=== PATIENT | male | born 1960 | race Hispanic/Latino ===

== ENCOUNTER 2020-11-09 03:03 | Inpatient (IN) | payer OTHER ==
[2020-11-08] MEDS: LOSARTAN POTASSIUM 100 MG TAB PO SCH (19:49)
[2020-11-09] VITALS (14 sets, daily range): BP systolic 131–174; BP diastolic 73–96
[~2020-11-09] VITALS: Ht 172.7 cm; Wt 108.9 kg
[2020-11-09] MEDS ORDERED: MORPHINE SULFATE INJ 4 MG/ML INJ 1ML IV STA (03:23)
[2020-11-09] MEDS ORDERED: ONDANSETRON HCL INJ 2MG/ML 2ML 2 MG/ML VIAL IV STA (03:23)
[2020-11-09] MEDS ORDERED: PANTOPRAZOLE 40 MG 10ML VIAL IV STA (03:23)
[2020-11-09 04:17] LABS: BASOPHILS % 0.3 % (0.0-1.0); EOSINOPHILS # (AUTO) 0.1 (0.0-0.4); EOSINOPHILS % 0.8 % (0.0-6.0); HEMATOCRIT 42.4 % (38.2-49.6); HEMOGLOBIN 13.9 g/dL (14.0-18.0); LYMPHOCYTES # (AUTO) 2.3 (1.0-3.2); LYMPHOCYTES % 29.6 % (18.0-39.1); MEAN CORPUSCULAR HEMOGLOBIN 27.6 pg (28-32); MEAN CORPUSCULAR HGB CONC 32.8 g/dL (31-35); MEAN CORPUSCULAR VOLUME 84.3 fL (81-99); MONOCYTES # (AUTO) 0.6 (0.2-0.8); MONOCYTES % 7.9 % (4.4-11.3); NEUTROPHILS # (AUTO) 4.7 (2.1-6.9); PLATELET COUNT 222 x10e3/uL (140-360); RED BLOOD COUNT 5.03 x10e6/uL (4.3-5.7); RED CELL DISTRIBUTION WIDTH 13.3 % (11.7-14.4)
[2020-11-09 04:30] LABS: ALANINE AMINOTRANSFERASE 17 IU/L (0-55); ALBUMIN 4.1 g/dL (3.5-5.0); ALBUMIN/GLOBULIN RATIO 1.1 (0.8-2.0); ALKALINE PHOSPHATASE 73 IU/L (40-150); ANION GAP 15.2 mmol/L (8-16); BLOOD UREA NITROGEN 11 mg/dL (7-26); BUN/CREATININE RATIO 11 (6-25); CALCIUM 9.1 mg/dL (8.4-10.2); CARBON DIOXIDE 27 mmol/L (22-29); CHLORIDE 103 mmol/L (98-107); CREATINE KINASE 71 IU/L (30-200); EST GLOMERULAR FILTRATION RATE > 60 ML/MIN (60-); GLUCOSE 119 mg/dL (74-118); POTASSIUM 3.2 mmol/L (3.5-5.1); SODIUM 142 mmol/L (136-145)
[2020-11-09 04:31] LABS: AMYLASE 45 U/L (25-125); LIPASE 28 U/L (8-78)
[2020-11-09] MEDS ORDERED: SODIUM CHLORIDE 0.9% 50ML 50 ML ONE (05:12)
[2020-11-09] MEDS ORDERED: IOPAMIDOL 370 MG/ML 200 ML INFUS..BTL INJ ONE (05:12)
[2020-11-09] MEDS ORDERED: LABETALOL HCL 5 MG/ML 20ML VIAL IV STA (05:46)
[2020-11-09 06:20] LABS: CLARITY,URINE CLOUDY (CLEAR); COLOR,URINE AMBER (YELLOW); KETONES,URINE TRACE (NEGATIVE); LEUKOCYTE ESTERASE ,URINE NEGATIVE (NEGATIVE); NITRITE,URINE NEGATIVE (NEGATIVE); PROTEIN,URINE DIPSTICK 1+ (NEGATIVE)
[2020-11-09 06:21] LABS: BACTERIA,URINE MODERATE /HPF; EPITHELIAL CELLS,URINE MODERATE /LPF; MUCUS,URINE MANY (RARE); URINE UROBILINOGEN 2 mg/dL (0.2 - 1)
[2020-11-09] MEDS ORDERED: CEFTRIAXONE SOD 1 GM/50 ML BAG IV SCH (06:45)
[2020-11-09] MEDS: CEFTRIAXONE SOD 1 GM in SODIUM CHLORIDE 0.9% 50ML 50 ML IV SCH ×2 (06:58→16:44)
[2020-11-09] MEDS ORDERED: ENALAPRILAT IV INJ 1.25 MG/ML VIAL IV STA (07:06)
[2020-11-09] MEDS ORDERED: ONDANSETRON HCL INJ 2MG/ML 2ML 2 MG/ML VIAL IV PRN (07:15)
[2020-11-09] MEDS ORDERED: ENALAPRILAT IV INJ 1.25 MG/ML VIAL IV PRN (07:15)
[2020-11-09] MEDS: METOPROLOL SUCCINATE 25 MG TAB XL PO SCH ×2 (07:51→09:00)
[2020-11-09] MEDS: FAMOTIDINE 20 MG/2 ML VIAL IV SCH ×2 (11:02→19:49)
[2020-11-09] MEDS ORDERED: HYDROCHLOROTHIA25 MG PO (11:30)
[2020-11-09 12:59] LABS: CREATINE KINASE 47 IU/L (30-200)
[2020-11-09] MEDS: AMLODIPINE BESYLATE 5 MG TAB PO SCH (14:29)
[2020-11-09] MEDS: DOCUSATE SODIUM 100 MG CAP PO SCH (19:49)
[2020-11-09] MEDS: MORPHINE SULFATE INJ 2 MG/ML SYR IV PRN (19:54)
[2020-11-09] MEDS: LABETALOL HCL 5 MG/ML 20ML VIAL IV PRN (20:20)
[2020-11-10] VITALS (26 sets, daily range): BP systolic 125–163; BP diastolic 66–95
[2020-11-10] MEDS: MORPHINE SULFATE INJ 2 MG/ML SYR IV PRN ×2 (03:28→08:07)
[2020-11-10 05:44] LABS: BASOPHILS % 0.1 % (0.0-1.0); EOSINOPHILS % 0.1 % (0.0-6.0); HEMATOCRIT 39.6 % (38.2-49.6); HEMOGLOBIN 12.9 g/dL (14.0-18.0); LYMPHOCYTES # (AUTO) 1.1 (1.0-3.2); LYMPHOCYTES % 12.4 % (18.0-39.1); MEAN CORPUSCULAR HEMOGLOBIN 27.7 pg (28-32); MEAN CORPUSCULAR HGB CONC 32.6 g/dL (31-35); MEAN CORPUSCULAR VOLUME 85.2 fL (81-99); MONOCYTES # (AUTO) 0.9 (0.2-0.8); MONOCYTES % 10.3 % (4.4-11.3); NEUTROPHILS % 76.8 % (38.7-80.0); PLATELET COUNT 187 x10e3/uL (140-360); RED BLOOD COUNT 4.65 x10e6/uL (4.3-5.7); RED CELL DISTRIBUTION WIDTH 13.6 % (11.7-14.4)
[2020-11-10] MEDS ORDERED: CEFTRIAXONE SOD 1 GM VIAL ONE ×2 (06:00→20:25)
[2020-11-10] MEDS: LABETALOL HCL 5 MG/ML 20ML VIAL IV PRN ×3 (06:31→22:14)
[2020-11-10] MEDS: CEFTRIAXONE SOD 1 GM in SODIUM CHLORIDE 0.9% 50ML 50 ML IV SCH ×2 (06:32→20:30)
[2020-11-10 06:35] LABS: ALANINE AMINOTRANSFERASE 11 IU/L (0-55); ALBUMIN 3.6 g/dL (3.5-5.0); ALKALINE PHOSPHATASE 62 IU/L (40-150); ANION GAP 13.7 mmol/L (8-16); BLOOD UREA NITROGEN 13 mg/dL (7-26); BUN/CREATININE RATIO 16 (6-25); CALCIUM 8.3 mg/dL (8.4-10.2); CARBON DIOXIDE 26 mmol/L (22-29); CHLORIDE 102 mmol/L (98-107); CHOL/HDL RATIO 3.1 (3.9-4.7); CHOLESTEROL 129 MD/DL (0-199); CREATININE, SERUM 0.81 mg/dL (0.72-1.25); EST GLOMERULAR FILTRATION RATE > 60 ML/MIN (60-); GLUCOSE 116 mg/dL (74-118); HDL CHOLESTEROL 42 MG/DL (40-60); LDL CHOLESTEROL 73 MG/DL (60-130); POTASSIUM 3.7 mmol/L (3.5-5.1); SODIUM 138 mmol/L (136-145); TRIGLYCERIDES 71 MG/DL (0-149)
[2020-11-10 07:54] LABS: CREATINE KINASE MB 0.4 ng/mL (0-5.0)
[2020-11-10] MEDS: DOCUSATE SODIUM 100 MG CAP PO SCH ×2 (08:05→16:31)
[2020-11-10] MEDS: FAMOTIDINE 20 MG/2 ML VIAL IV SCH (08:05)
[2020-11-10] MEDS: ATORVASTATIN 20 MG TAB PO SCH (08:06)
[2020-11-10] MEDS: METOPROLOL SUCCINATE 25 MG TAB XL PO SCH (08:06)
[2020-11-10] MEDS: LOSARTAN POTASSIUM 100 MG TAB PO SCH (08:06)
[2020-11-10] MEDS: AMLODIPINE BESYLATE 5 MG TAB PO SCH (08:06)
[2020-11-10] MEDS ORDERED: DOCUSATE SODIUM 100 MG CAP PO SCH (09:00)
[2020-11-10] MEDS ORDERED: METOPROLOL SUCCINATE 25 MG TAB XL PO ONE (11:30)
[2020-11-10] MEDS ORDERED: METOPROLOL SUCCINATE 50 MG TAB XL PO SCH (12:00)
[2020-11-10] MEDS ORDERED: ACETAMINOPHEN/CODEINE 300MG - 30MG TAB PO PRN (14:00)
[2020-11-10] MEDS: PANTOPRAZOLE 40 MG 10ML VIAL IV SCH (16:31)
[2020-11-10] MEDS ORDERED: LOSARTAN POTASSIUM 100 MG TAB PO SCH (20:00)
[2020-11-10] MEDS ORDERED: SODIUM CHLORIDE 0.9% 100 ML ONE (20:27)
[2020-11-10] MEDS: NIFEDIPINE CR 30 MG TAB PO SCH (20:30)
[2020-11-11] VITALS (10 sets, daily range): BP systolic 109–152; BP diastolic 60–91
[2020-11-11] MEDS ORDERED: CEFTRIAXONE SOD 1 GM VIAL ONE (06:36)
[2020-11-11] MEDS ORDERED: SODIUM CHLORIDE 0.9% 100 ML ONE (06:37)
[2020-11-11] MEDS: CEFTRIAXONE SOD 1 GM in SODIUM CHLORIDE 0.9% 50ML 50 ML IV SCH (06:45)
[2020-11-11] MEDS: LOSARTAN POTASSIUM 100 MG TAB PO SCH (07:38)
[2020-11-11] MEDS: PANTOPRAZOLE 40 MG 10ML VIAL IV SCH ×2 (07:38→17:05)
[2020-11-11] MEDS: DOCUSATE SODIUM 100 MG CAP PO SCH ×2 (07:38→17:05)
[2020-11-11] MEDS: ATORVASTATIN 20 MG TAB PO SCH (07:38)
[2020-11-11] MEDS: NIFEDIPINE CR 30 MG TAB PO SCH (07:39)
[2020-11-11] MEDS ORDERED: METOPROLOL SUCCINATE 50 MG TAB XL PO SCH ×2 (09:00)
[2020-11-11] MEDS ORDERED: TOPROL XL50 MG PO (18:08)
[2020-11-11] MEDS ORDERED: COZAAR100 MG PO (18:08)
[2020-11-11] MEDS ORDERED: LIPITOR20 MG PO (18:08)
[2020-11-11] MEDS ORDERED: NIFEDIPINE ER30 M1 PO (18:08)
[2020-11-11] MEDS ORDERED: PANTOPRAZOLE SO40 MG PO (18:08)
== END 2020-11-11 18:44 | disposition home or self-care (01) | DRG 301 ==
LOC: ER 03:22 → ERHOLD 07:06 → IMCU 09:32
PROVIDERS: ADMIT Internal Medicine; ATTEND Internal Medicine
DX: I71.01 Dissection of thoracic aorta (principal); I10 Essential (primary) hypertension; E66.9 Obesity, unspecified; Z68.36 Body mass index [BMI] 36.0-36.9, adult; R10.9 Unspecified abdominal pain; Z20.822 Contact with and (suspected) exposure to COVID-19; E66.01 Morbid (severe) obesity due to excess calories; E78.5 Hyperlipidemia, unspecified
CPT/HCPCS: 36415; 71275; 74177; 80053; 80061; 81001; 82150; 82550; 82553; 83605; 83690; 84484; 85025; 86850; 86900; 87086; 93005; 93306; 99284; J0696; J2270; J2405; J7050; Q9967; U0002

== ENCOUNTER 2023-01-15 21:49 | Emergency (ER) | payer OTHER ==
[~2023-01-15] VITALS: Ht 172.7 cm; Wt 99.8 kg
[~2023-01-15 21:49] MED LIST: COZAAR100 MG PO; HYDROCHLOROTHIA25 MG PO; LIPITOR20 MG PO; NIFEDIPINE ER30 M1 PO; PANTOPRAZOLE SO40 MG PO; TOPROL XL50 MG PO
[2023-01-15 22:22] LABS: BASOPHILS % 0.2 % (0.0-1.0); EOSINOPHILS % 0.2 % (0.0-6.0); HEMATOCRIT 29.5 % (38.2-49.6); LYMPHOCYTES % 9.3 % (18.0-39.1); MEAN CORPUSCULAR HEMOGLOBIN 24.1 pg (28-32); MEAN CORPUSCULAR HGB CONC 30.5 g/dL (31-35); MEAN CORPUSCULAR VOLUME 78.9 fL (81-99); MONOCYTES # (AUTO) 0.7 (0.2-0.8); MONOCYTES % 5.9 % (4.4-11.3); NEUTROPHILS # (AUTO) 9.2 (2.1-6.9); NEUTROPHILS % 83.9 % (38.7-80.0); PLATELET COUNT 311 x10e3/uL (140-360); RED BLOOD COUNT 3.74 x10e6/uL (4.3-5.7)
[2023-01-15 22:40] LABS: ALBUMIN 3.3 g/dL (3.5-5.0); ALBUMIN/GLOBULIN RATIO 0.8 (0.8-2.0); ANION GAP 12.3 mmol/L (8-16); CALCIUM 8.1 mg/dL (8.4-10.2); CREATININE, SERUM 1.33 mg/dL (0.72-1.25); POTASSIUM 3.3 mmol/L (3.5-5.1)
[2023-01-15] MEDS ORDERED: Morphine 4mg INJECTION 4 MG/ML INJ IV STA (22:49)
[2023-01-15] MEDS ORDERED: ONDANSETRON HCL INJ 2MG/ML 2ML 2 MG/ML VIAL IV STA (22:50)
[2023-01-15] MEDS ORDERED: ONDANSETRON HCL INJ 2MG/ML 2ML 2 MG/ML VIAL ONE (22:55)
[2023-01-15 23:00] VITALS: O2SAT 100
[2023-01-16] MEDS ORDERED: IOPAMIDOL 370 MG/ML 100 ML INFUS..BTL INJ ONE (00:24)
== END 2023-01-15 23:10 | disposition other institution (70) ==
LOC: ER 21:55
DX: I71.30 Abdominal aortic aneurysm, ruptured, unspecified (principal); I71.019 Dissection of thoracic aorta, unspecified; R57.8 Other shock; I10 Essential (primary) hypertension; Z20.822 Contact with and (suspected) exposure to COVID-19; R94.31 Abnormal electrocardiogram [ECG] [EKG]
CPT/HCPCS: 36415; 71275; 74174; 80053; 82550; 83690; 83880; 84484; 85025; 85379; 86850; 86900; 93005; 99284; J2270; J2405; Q9967; U0002